=== PATIENT | female | born 1970 | race American Indian/Alaskan Native ===

== ENCOUNTER 2017-09-08 13:49 | Emergency (ER) | payer BC ==
[2017-09-08] MEDS ORDERED: ZOFRAN ODT PO ONE (17:11)
[2017-09-08] MEDS ORDERED: NORCO 10/325 PO ONE (17:11)
--- NOTE | 2017-09-08 17:41 | Emergency Department Report ---
ED Back Pain/Injury HPI - General Chief Complaint: Back Pain/Injury Stated Complaint: back pain Time Seen by Provider: 09/08/17 16:35 Source: patient Limitations: No Limitations - History of Present Illness Initial Comments: 47-year-old female past medical history fibromyalgia, obesity presents with complaint of one week of back pain with mild dysuria and increased urinary frequency and urgency. Patient denies fevers chills nausea and vomiting. States that her back feels achy. Denies any trauma denies any falls. Patient states that this may be her fibromyalgia pain. Patient is awake alert and oriented 3 not in acute distress. Patient is ambulatory without assistance. Denies any saddle paresthesias denies any loss of bladder or bowel control. States she is following up with her primary doctor this week MD Complaint: back pain Onset/Timin -: week(s) Similar Symptoms Previously: Yes Place: home Severity: mild Consistency: constant Improves With: none Worsens With: none Associated Symptoms: denies other symptoms - Related Data Home Medications Medication Instructions Recorded Confirmed Last Taken Omeprazole [PriLOSEC] 1 tab PO QDAY 08/29/13 06/27/14 06/26/14 traMADol [Ultram 50 MG tab] 1 tab PO Q6H PRN 08/29/13 06/27/14 06/26/14 Previous Rx's Medication Instructions Recorded Last Taken Type Ferrous Sulfate [Iron Supplement] 325 mg PO TID #90 tablet 08/30/13 06/26/14 Rx Lisinopril/Hydrochlorothiazide 1 tab PO QDAY #30 tablet 08/30/13 06/26/14 Rx [Zestoretic 20-25 mg] amLODIPine [Norvasc] 10 mg PO DAILY #30 tab 08/30/13 06/26/14 Rx Famotidine [Pepcid] 20 mg PO BID #10 tablet 06/27/14 Unknown Rx Omeprazole [PriLOSEC] 20 mg PO BID #60 cap 06/27/14 Unknown Rx Ondansetron [Zofran Odt] 4 mg PO Q6H #10 tab.rapdis 06/27/14 Unknown Rx oxyCODONE /ACETAMINOPHEN [Percocet 1 tab PO Q6HR PRN #10 tablet 06/27/14 Unknown Rx 5/325] traMADol [Ultram 50 MG tab] 50 mg PO Q6HR PRN #20 tablet 10/12/14 Unknown Rx Acetaminophen/Codeine [Tylenol #3] 1 tab PO Q6H PRN #15 tab 06/11/15 Unknown Rx methOCARBAMOL [Robaxin TAB] 500 mg PO BID #20 tab 06/11/15 Unknown Rx Dicyclomine [Bentyl] 10 mg PO QID #20 capsule 08/21/15 Unknown Rx Metoclopramide HCl [Reglan TAB] 5 mg PO Q6HR PRN #10 tablet 08/21/15 Unknown Rx Polyethylene Glycol 3350 [Miralax 17 gm PO ONCE #1 packet 08/21/15 Unknown Rx 3350] Acetaminophen/Codeine [Tylenol 1 tab PO Q6H PRN #12 tab 09/08/17 Unknown Rx /Codeine # 3 tab] Ibuprofen [Motrin] 800 mg PO Q8HR PRN #30 tablet 09/08/17 Unknown Rx Sulfamethoxazole/Trimethoprim 1 each PO BID #14 tablet 09/08/17 Unknown Rx [Bactrim DS TAB] Allergies Allergy/AdvReac Type Severity Reaction Status Date / Time No Known Allergies Allergy Verified 09/08/17 13:58 ED Review of Systems ROS: Stated complaint: back pain Other details as noted in HPI Constitutional: denies: chills, fever Eyes: denies: eye pain, eye discharge, vision change ENT: denies: ear pain, throat pain Respiratory: denies: cough, shortness of breath, wheezing Cardiovascular: denies: chest pain, palpitations Endocrine: no symptoms reported Gastrointestinal: denies: abdominal pain, nausea, diarrhea Genitourinary: denies: urgency, dysuria, discharge Musculoskeletal: back pain. denies: joint swelling, arthralgia Skin: denies: rash, lesions Neurological: denies: headache, weakness, paresthesias Psychiatric: denies: anxiety, depression Hematological/Lymphatic: denies: easy bleeding, easy bruising ED Past Medical Hx - Past Medical History Hx Hypertension: Yes Hx Arthritis: Yes Hx Kidney Stones: Yes Additional medical history: gastric ulcers - Surgical History Additional Surgical History: CS - Social History Smoking Status: Never Smoker Substance Use Type: None - Medications Home Medications: Home Medications Medication Instructions Recorded Confirmed Last Taken Type Omeprazole [PriLOSEC] 1 tab PO QDAY 08/29/13 06/27/14 06/26/14 History traMADol [Ultram 50 MG tab] 1 tab PO Q6H PRN 08/29/13 06/27/14 06/26/14 History Ferrous Sulfate [Iron Supplement] 325 mg PO TID #90 tablet 08/30/13 06/27/14 Rx Lisinopril/Hydrochlorothiazide 1 tab PO QDAY #30 tablet 08/30/13 06/27/14 Rx [Zestoretic 20-25 mg] amLODIPine [Norvasc] 10 mg PO DAILY #30 tab 08/30/13 06/27/14 06/26/14 Rx Famotidine [Pepcid] 20 mg PO BID #10 tablet 06/27/14 Unknown Rx Omeprazole [PriLOSEC] 20 mg PO BID #60 cap 06/27/14 Unknown Rx Ondansetron [Zofran Odt] 4 mg PO Q6H #10 tab.rapdis 06/27/14 Unknown Rx oxyCODONE /ACETAMINOPHEN [Percocet 1 tab PO Q6HR PRN #10 tablet 06/27/14 Unknown Rx 5/325] traMADol [Ultram 50 MG tab] 50 mg PO Q6HR PRN #20 tablet 10/12/14 Unknown Rx Acetaminophen/Codeine [Tylenol #3] 1 tab PO Q6H PRN #15 tab 06/11/15 Unknown Rx methOCARBAMOL [Robaxin TAB] 500 mg PO BID #20 tab 06/11/15 Unknown Rx Dicyclomine [Bentyl] 10 mg PO QID #20 capsule 08/21/15 Unknown Rx Metoclopramide HCl [Reglan TAB] 5 mg PO Q6HR PRN #10 tablet 08/21/15 Unknown Rx Polyethylene Glycol 3350 [Miralax 17 gm PO ONCE #1 packet 08/21/15 Unknown Rx 3350] Acetaminophen/Codeine [Tylenol 1 tab PO Q6H PRN #12 tab 09/08/17 Unknown Rx /Codeine # 3 tab] Ibuprofen [Motrin] 800 mg PO Q8HR PRN #30 tablet 09/08/17 Unknown Rx Sulfamethoxazole/Trimethoprim 1 each PO BID #14 tablet 09/08/17 Unknown Rx [Bactrim DS TAB] ED Physical Exam - General Limitations: No Limitations General appearance: alert, in no apparent distress - Head Head exam: Present: atraumatic, normocephalic - Eye Eye exam: Present: normal appearance, PERRL, EOMI - ENT ENT exam: Present: mucous membranes moist - Neck Neck exam: Present: normal inspection - Respiratory Respiratory exam: Present: normal lung sounds bilaterally. Absent: respiratory distress - Cardiovascular Cardiovascular Exam: Present: regular rate, normal rhythm. Absent: systolic murmur, diastolic murmur, rubs, gallop - GI/Abdominal GI/Abdominal exam: Present: soft (abdomen soft nontender nondistended four quadrants), normal bowel sounds - Extremities Exam Extremities exam: Present: normal inspection - Back Exam Back exam: Present: normal inspection - Neurological Exam Neurological exam: Present: alert, oriented X3, CN II-XII intact, normal gait - Psychiatric Psychiatric exam: Present: normal affect, normal mood - Skin Skin exam: Present: warm, dry, intact, normal color. Absent: rash ED Course Vital Signs 09/08/17 13:58 Temperature 98.0 F Pulse Rate 64 Respiratory 18 Rate Blood Pressure 179/80 O2 Sat by Pulse 98 Oximetry ED Medical Decision Making - Lab Data Result diagrams: 09/08/17 17:34 09/08/17 17:34 - Medical Decision Making A/P: Back pain, possible fibromyalgia pain versus UTI 1-Motrin when necessary, short course Tylenol 3 when necessary 2-will cover patient empirically with course of Bactrim 3-as patient is voiding urine without difficulty and has normal labs will refrain from imaging at this time. Patient denies any trauma or falls. cbc, renal function and creatinine kinase within normal limits Critical care attestation.: If time is entered above; I have spent that time in minutes in the direct care of this critically ill patient, excluding procedure time. ED Disposition Clinical Impression: Back pain Qualifiers: Back pain location: low back pain Chronicity: unspecified Back pain laterality : unspecified Sciatica presence: without sciatica Qualified Code(s): M54.5 - Low back pain Urinary tract infection Qualifiers: Urinary tract infection type: acute cystitis Hematuria presence: without hematuria Qualified Code(s): N30.00 - Acute cystitis without hematuria Disposition: TO HOME OR SELFCARE Is pt being admited?: No Does the pt Need Aspirin: No Condition: Stable Instructions: Urinary Tract Infection in Women (ED), Dysuria (ED) Prescriptions: Acetaminophen/Codeine [Tylenol /Codeine # 3 tab] 1 tab PO Q6H PRN #12 tab PRN Reason: Pain Ibuprofen [Motrin] 800 mg PO Q8HR PRN #30 tablet PRN Reason: Pain Sulfamethoxazole/Trimethoprim [Bactrim DS TAB] 1 each PO BID #14 tablet Referrals: [facility] [Outside] - 3-5 Days [facility] [Outside] - 3-5 Days Time of Disposition: 19:12
[2017-09-08 17:44] LABS: Bilirubin,Urine NEG (Negative); Blood,Urine NEG (Negative); Color,Urine Yellow (Yellow); Mucus,Urine FEW /HPF; Nitrite,Urine NEG (Negative); Protein,Urine <15 mg/dL mg/dL (Negative)
[2017-09-08 18:03] LABS: HCG Qualitative,Urine Negative (Negative)
[2017-09-08 18:04] LABS: Basophils # (Auto) 0.1 K/mm3 (0.0-0.1); Eosinophils # (Auto) 0.1 K/mm3 (0.0-0.4); Hematocrit 35.6 % (30.3-42.9); Hemoglobin 10.7 gm/dl (10.1-14.3); Lymphocytes # (Auto) 2.6 K/mm3 (1.2-5.4); Lymphocytes % (Auto) 39.3 % (13.4-35.0); Mean Corpuscular HGB Conc 30 % (30-34); Monocytes # (Auto) 0.3 K/mm3 (0.0-0.8); Monocytes % (Auto) 4.4 % (0.0-7.3); Platelet Count 309 K/mm3 (140-440); Red Blood Count 5.13 M/mm3 (3.65-5.03); Red Cell Distribution Width 18.4 % (13.2-15.2)
[2017-09-08 18:05] LABS: Mean Corpuscular Hemoglobin 21 pg (28-32); Mean Corpuscular Volume 70 fl (79-97)
[2017-09-08 18:12] LABS: BUN/Creatinine Ratio 17; Blood Urea Nitrogen 10 mg/dL (7-17); Calcium 9.1 mg/dL (8.4-10.2); Hemolysis Index 3
[2017-09-08 19:23] VITALS: BP 153/86
== END 2017-09-08 19:23 | disposition home or self-care (01) ==
LOC: ED 13:49
DX: N30.00 Acute cystitis without hematuria (principal); M54.5 Low back pain; I10 Essential (primary) hypertension; M19.90 Unspecified osteoarthritis, unspecified site
CPT/HCPCS: 36415; 80048; 81001; 81025; 82550; 85025; 87086; 99283; Q0162

== ENCOUNTER 2017-12-26 16:52 | Emergency (ER) | payer BC ==
[2017-12-26 17:01] VITALS: BP 158/93
--- NOTE | 2017-12-26 18:38 | XRay Report ---
FINAL REPORT EXAM: XR CHEST ROUTINE 2V HISTORY: Cough, SOB x 1 month. TECHNIQUE: PA and lateral views of the chest PRIORS: None. FINDINGS: Lines, tubes, and devices: N/A Lungs and pleura: Trachea is normal in position. Lungs are clear of infiltrate, pleural effusion, vascular congestion, or pneumothorax. Cardiomediastinal silhouette: Cardiac and mediastinal silhouettes are unremarkable. Other: Bony structures are intact. IMPRESSION: No acute cardiopulmonary process seen.
--- NOTE | 2017-12-26 20:31 | Emergency Department Report ---
- General Chief Complaint: Upper Respiratory Infection Stated Complaint: CHEST PAIN Time Seen by Provider: 12/26/17 20:20 Source: patient Mode of arrival: Ambulatory Limitations: No Limitations - History of Present Illness Initial Comments: This is a 47-year-old female nontoxic, well nourished in appearance, no acute signs of distress presents to the ED with c/o of productive cough, sore throat, rhinorrhea, nasal congestion x1 month. Patient describes productive cough as yellow mucus production. Patient denies any sick contact. Patient denies any recent travels, long car, recent hospital stays. Patient denies any calf pain or calf tenderness. Patient denies any chest pain, short of breath, fever, chills, nausea, vomiting, hemoptysis, numbness, tingling, headache or stiff neck. Patient denies any drug allergies. Past medical history includes arthritis and hypertension. MD Complaint: cough, sore throat, rhinorrhea, nasal congestion -: month(s) (1) Severity: mild Severity scale (0 -10): 0 Consistency: constant Improves With: nothing Worsens With: nothing Associated Symptoms: rhinorrhea, nasal congestion, sore throat, cough. denies: fever, chills, myalgias, diaphoresis, headache, stiff neck, chest pain, shortness of breath, abdominal pain, nausea, vomiting, diarrhea, dysuria, rash, confusion, right sweats, weight loss, epistaxis, hoarseness, ear pain Treatments Prior to Arrival: none - Related Data Home Medications Medication Instructions Recorded Confirmed Last Taken Carvedilol [Coreg] 25 mg PO DAILY 12/26/17 12/26/17 12/26/17 Previous Rx's Medication Instructions Recorded Last Taken Type Lisinopril/Hydrochlorothiazide 1 tab PO QDAY #30 tablet 08/30/13 12/26/17 Rx [Zestoretic 20-25 mg] amLODIPine [Norvasc] 10 mg PO DAILY #30 tab 08/30/13 12/26/17 Rx Omeprazole [PriLOSEC] 20 mg PO BID #60 cap 06/27/14 12/26/17 Rx Azithromycin [Zithromax Z-JOHN] 250 mg PO DAILY #6 tablet 12/26/17 Unknown Rx Benzonatate [Tessalon Perle] 100 mg PO Q8H PRN #20 capsule 12/26/17 Unknown Rx Fluticasone [Flonase] 1 spray NS QDAY #1 bottle 12/26/17 Unknown Rx Loratadine [Claritin] 10 mg PO DAILY #30 tablet 12/26/17 Unknown Rx Prednisone [predniSONE 10 mg 10 mg PO .TAPER #1 tab.ds.pk 12/26/17 Unknown Rx (6-Day Pack, 21 Tabs)] Allergies Allergy/AdvReac Type Severity Reaction Status Date / Time No Known Allergies Allergy Verified 09/08/17 13:58 ED Review of Systems ROS: Stated complaint: CHEST PAIN Other details as noted in HPI Constitutional: denies: chills, fever Eyes: denies: eye pain, eye discharge, vision change ENT: throat pain. denies: ear pain Respiratory: cough. denies: shortness of breath, wheezing Cardiovascular: denies: chest pain, palpitations Endocrine: no symptoms reported Gastrointestinal: denies: abdominal pain, nausea, diarrhea Genitourinary: denies: urgency, dysuria, discharge Musculoskeletal: denies: back pain, joint swelling, arthralgia Skin: denies: rash, lesions Neurological: denies: headache, weakness, paresthesias Psychiatric: denies: anxiety, depression Hematological/Lymphatic: denies: easy bleeding, easy bruising ED Past Medical Hx - Past Medical History Hx Hypertension: Yes Hx Arthritis: Yes Hx Kidney Stones: Yes Additional medical history: gastric ulcers - Surgical History Past Surgical History?: Yes Additional Surgical History: CS - Social History Smoking Status: Never Smoker - Medications Home Medications: Home Medications Medication Instructions Recorded Confirmed Last Taken Type Lisinopril/Hydrochlorothiazide 1 tab PO QDAY #30 tablet 08/30/13 06/27/14 Rx [Zestoretic 20-25 mg] amLODIPine [Norvasc] 10 mg PO DAILY #30 tab 08/30/13 06/27/14 12/26/17 Rx Omeprazole [PriLOSEC] 20 mg PO BID #60 cap 06/27/14 12/26/17 Rx Azithromycin [Zithromax Z-JOHN] 250 mg PO DAILY #6 tablet 12/26/17 Unknown Rx Benzonatate [Tessalon Perle] 100 mg PO Q8H PRN #20 capsule 12/26/17 Unknown Rx Carvedilol [Coreg] 25 mg PO DAILY 12/26/17 12/26/17 12/26/17 History Fluticasone [Flonase] 1 spray NS QDAY #1 bottle 12/26/17 Unknown Rx Loratadine [Claritin] 10 mg PO DAILY #30 tablet 12/26/17 Unknown Rx Prednisone [predniSONE 10 mg 10 mg PO .TAPER #1 tab.ds.pk 12/26/17 Unknown Rx (6-Day Pack, 21 Tabs)] ED Physical Exam - General Limitations: No Limitations General appearance: alert, in no apparent distress - Head Head exam: Present: atraumatic, normocephalic - Eye Eye exam: Present: normal appearance Pupils: Present: normal accommodation - ENT ENT exam: Present: mucous membranes moist, TM's normal bilaterally, normal external ear exam - Expanded ENT Exam Expanded Ear exam: Present: normal external inspection Mouth exam: Present: normal external inspection, tongue normal. Absent: drooling, trismus, muffled voice, tongue elevation, laceration Teeth exam: Present: normal inspection Throat exam: Positive: tonsillar erythema, tonsillomegaly (2+), other (Uvula midline. No abscess or swelling noted. ). Negative: tonsillar exudate, R peritonsillar mass, L peritonsillar mass - Neck Neck exam: Present: normal inspection, full ROM, lymphadenopathy (bilateral tonsillar). Absent: tenderness, meningismus - Respiratory Respiratory exam: Present: normal lung sounds bilaterally. Absent: respiratory distress, wheezes, rales, rhonchi, stridor, chest wall tenderness, accessory muscle use, decreased breath sounds, prolonged expiratory - Cardiovascular Cardiovascular Exam: Present: regular rate, normal rhythm, normal heart sounds. Absent: bradycardia, tachycardia, irregular rhythm, systolic murmur, diastolic murmur, rubs, gallop - GI/Abdominal GI/Abdominal exam: Present: soft, normal bowel sounds. Absent: distended, tenderness, guarding, rebound, rigid, diminished bowel sounds - Extremities Exam Extremities exam: Present: normal inspection, full ROM, normal capillary refill - Back Exam Back exam: Present: normal inspection, full ROM - Neurological Exam Neurological exam: Present: alert, oriented X3, normal gait - Psychiatric Psychiatric exam: Present: normal affect, normal mood - Skin Skin exam: Present: warm, dry, intact, normal color. Absent: rash ED Course Vital Signs 12/26/17 16:57 Temperature 98.6 F Pulse Rate 74 Respiratory 22 Rate Blood Pressure 158/93 O2 Sat by Pulse 97 Oximetry - Reevaluation(s) Reevaluation #1: 12/26/17 20:32 Patient is speaking in full sentences with no signs of distress noted. ED Medical Decision Making - Medical Decision Making This is a 47-year-old female that presents with bronchitis and tonsillitis. Patient is stable and was examined by me. Chest x-ray has been obtained and dictated by radiologist with normal exam. Patient is notified of x-ray results with no questions noted. Due to patient having symptoms of bronchitis and worsening I will treat patient empirically with zpak. Patient was instructed to increase hydration, rest and take Motrin for fever episodes. Vitals stable. Patient is nonfebrile and normal heart rate. Patient was instructed Follow-up with a primary care doctor in 3-5 days or if symptoms worsen and continue return to emergency room as soon as possible. At time time of discharge, the patient does not seem toxic or ill in appearance. No acute signs of distress noted. Patient agrees to discharge treatment plan of care. No further questions noted by the patient. Critical care attestation.: If time is entered above; I have spent that time in minutes in the direct care of this critically ill patient, excluding procedure time. ED Disposition Clinical Impression: Bronchitis, Tonsillitis Disposition: DC-01 TO HOME OR SELFCARE Is pt being admited?: No Does the pt Need Aspirin: No Condition: Stable Instructions: Acute Bronchitis (ED), Tonsillitis (ED), Azithromycin (By mouth) , Prednisone (By mouth) Additional Instructions: Follow-up with a primary care doctor in 3-5 days or if symptoms worsen and continue return to emergency room as soon as possible. Prescriptions: Azithromycin [Zithromax Z-JHON] 250 mg PO DAILY #6 tablet Benzonatate [Tessalon Perle] 100 mg PO Q8H PRN #20 capsule PRN Reason: cough Fluticasone [Flonase] 1 spray NS QDAY #1 bottle Loratadine [Claritin] 10 mg PO DAILY #30 tablet Prednisone [predniSONE 10 mg (6-Day Pack, 21 Tabs)] 10 mg PO .TAPER #1 tab.ds.pk Referrals: PRIMARY CARE, [Primary Care Provider] - 3-5 Days PATRICK CARRILLO MD [Staff Physician] - 3-5 Days [facility] [Outside] - 3-5 Days [facility] [Outside] - 3-5 Days Forms: Work/School Release Form(ED)
== END 2017-12-26 20:37 | disposition home or self-care (01) ==
LOC: ED 16:52
DX: J40 Bronchitis, not specified as acute or chronic (principal); J03.90 Acute tonsillitis, unspecified; I10 Essential (primary) hypertension; M19.90 Unspecified osteoarthritis, unspecified site
CPT/HCPCS: 71046; 99283

== ENCOUNTER 2017-12-29 01:27 | Observation (INO) | payer BC ==
[2017-12-29] MEDS ORDERED: ASPIRIN PO ONE (01:45)
[2017-12-29 02:16] LABS: Basophils % (Auto) 0.6 % (0.0-1.8); Eosinophils # (Auto) 0.1 K/mm3 (0.0-0.4); Eosinophils % (Auto) 0.8 % (0.0-4.3); Hematocrit 34.1 % (30.3-42.9); Hemoglobin 10.7 gm/dl (10.1-14.3); Lymphocytes # (Auto) 2.3 K/mm3 (1.2-5.4); Lymphocytes % (Auto) 29.6 % (13.4-35.0); Mean Corpuscular HGB Conc 31 % (30-34); Monocytes # (Auto) 0.4 K/mm3 (0.0-0.8); Monocytes % (Auto) 5.2 % (0.0-7.3); Platelet Count 350 K/mm3 (140-440); Red Blood Count 4.95 M/mm3 (3.65-5.03); Red Cell Distribution Width 18.9 % (13.2-15.2)
[2017-12-29 02:26] LABS: Mean Corpuscular Hemoglobin 22 pg (28-32); Mean Corpuscular Volume 69 fl (79-97)
[2017-12-29 02:39] LABS: BUN/Creatinine Ratio 17; Blood Urea Nitrogen 12 mg/dL (7-17); Calcium 9.4 mg/dL (8.4-10.2); Hemolysis Index 4
[2017-12-29] MEDS ORDERED: ZOFRAN IV ONE (08:18)
[2017-12-29] MEDS ORDERED: NITRO-BID 2% TP ONE (08:18)
[2017-12-29] MEDS ORDERED: MORPHINE IV ONE (08:19)
--- NOTE | 2017-12-29 08:30 | Emergency Department Report ---
HPI - General Chief Complaint: Chest Pain Time Seen by Provider: 12/29/17 08:10 - HPI HPI: Room 24 The patient is a 47-year-old female presenting with a chief complaint of chest pain. The patient states for approximately 2 months she's had intermittent cough that was originally productive of green sputum. The patient states she was seen here 3 days ago and diagnosed with bronchitis. Patient states at approximately midnight she developed substernal chest pressure radiating to her left arm. The patient states she has a squeezing pressure pain in her chest and left arm that has been intermittent and associated with shortness of breath and diaphoresis. Patient denies nausea/vomiting. Patient admits to orthopnea. The patient states her last stress test occurred approximately one year ago. Patient states she's never had a cardiac catheterization Location: Chest, left arm Duration: [See above] Quality: Squeezing/pressure Severity: 03/14 Modifying factors: [see above] Context: [see above] Mode of transportation: [not driving] ED Past Medical Hx - Past Medical History Hx Hypertension: Yes Hx Arthritis: Yes Hx Kidney Stones: Yes Additional medical history: gastric ulcers - Surgical History Past Surgical History?: Yes Additional Surgical History: CS - Family History Family history: no significant - Social History Smoking Status: Never Smoker Substance Use Type: None (denies illicit drug use) - Medications Home Medications: Home Medications Medication Instructions Recorded Confirmed Last Taken Type Lisinopril/Hydrochlorothiazide 1 tab PO QDAY #30 tablet 08/30/13 06/27/14 Rx [Zestoretic 20-25 mg] amLODIPine [Norvasc] 10 mg PO DAILY #30 tab 08/30/13 06/27/14 12/26/17 Rx Omeprazole [PriLOSEC] 20 mg PO BID #60 cap 06/27/14 12/26/17 Rx Azithromycin [Zithromax Z-JOHN] 250 mg PO DAILY #6 tablet 12/26/17 Unknown Rx Benzonatate [Tessalon Perle] 100 mg PO Q8H PRN #20 capsule 12/26/17 Unknown Rx Carvedilol [Coreg] 25 mg PO DAILY 12/26/17 12/26/17 12/26/17 History Fluticasone [Flonase] 1 spray NS QDAY #1 bottle 12/26/17 Unknown Rx Loratadine [Claritin] 10 mg PO DAILY #30 tablet 12/26/17 Unknown Rx Prednisone [predniSONE 10 mg 10 mg PO .TAPER #1 tab.ds.pk 12/26/17 Unknown Rx (6-Day Pack, 21 Tabs)] ED Review of Systems ROS: Stated complaint: CHEST PAIN,LEFT ARM PAIN Other details as noted in HPI Constitutional: diaphoresis. denies: fever Eyes: denies: eye pain ENT: denies: throat pain Respiratory: cough, orthopnea, shortness of breath Cardiovascular: chest pain Gastrointestinal: denies: abdominal pain, nausea, vomiting Genitourinary: denies: dysuria Musculoskeletal: back pain Neurological: denies: headache Physical Exam - Physical Exam Vital Signs: Vital Signs 12/29/17 12/29/17 12/29/17 01:30 01:40 05:30 Temperature 98.3 F 98.3 F 98.1 F Pulse Rate 67 78 70 Respiratory 18 20 18 Rate Blood Pressure 175/85 175/85 Blood Pressure 175/85 175/91 [Right] O2 Sat by Pulse 95 99 99 Oximetry 12/29/17 06:01 Temperature Pulse Rate 70 Respiratory Rate Blood Pressure Blood Pressure [Right] O2 Sat by Pulse Oximetry Physical Exam: GENERAL: The patient is well-developed well-nourished female lying on stretcher not appearing to be in acute distress. [] HEENT: Normocephalic. Atraumatic. Extraocular motions are intact. Patient has moist mucous membranes. NECK: Supple. Trachea midline CHEST/LUNGS: Clear to auscultation. There is no respiratory distress noted. HEART/CARDIOVASCULAR: Regular. There is no tachycardia. There is no gallop rub or murmur. ABDOMEN: Abdomen is soft, nontender. Patient has normal bowel sounds. There is no abdominal distention. SKIN: There is no rash. There is no edema. There is no diaphoresis. NEURO: The patient is awake, alert, and oriented. The patient is cooperative. The patient has normal speech MUSCULOSKELETAL: There is no evidence of acute injury. ED Course Vital Signs 12/29/17 12/29/17 12/29/17 01:30 01:40 05:30 Temperature 98.3 F 98.3 F 98.1 F Pulse Rate 67 78 70 Respiratory 18 20 18 Rate Blood Pressure 175/85 175/85 Blood Pressure 175/85 175/91 [Right] O2 Sat by Pulse 95 99 99 Oximetry 12/29/17 06:01 Temperature Pulse Rate 70 Respiratory Rate Blood Pressure Blood Pressure [Right] O2 Sat by Pulse Oximetry ED Medical Decision Making - Lab Data Result diagrams: 12/29/17 01:53 12/29/17 01:53 Laboratory Tests 12/29/17 12/29/17 12/29/17 01:53 01:53 05:05 WBC 7.7 RBC 4.95 Hgb 10.7 Hct 34.1 MCV 69 L MCH 22 L MCHC 31 RDW 18.9 H Plt Count 350 Lymph % (Auto) 29.6 [place] % (Auto) 5.2 Eos % (Auto) 0.8 Baso % (Auto) 0.6 Lymph # 2.3 [place] # 0.4 Eos # 0.1 Baso # 0.0 Seg Neutrophils % 63.8 Seg Neutrophils # 4.9 Sodium 138 Potassium 3.3 L Chloride 94.5 L Carbon Dioxide 30 Anion Gap 17 BUN 12 Creatinine 0.7 Estimated GFR > 60 BUN/Creatinine Ratio 17 Glucose 239 H Calcium 9.4 Troponin T < 0.010 < 0.010 - EKG Data -: EKG Interpreted by Me EKG shows normal: sinus rhythm Rate: normal - EKG Data When compared to previous EKG there are: previous EKG unavailable Interpretation: other (no ischemic changes seen) - Radiology Data Radiology results: image reviewed (chest x-ray) interpreted by me: Chest x-ray-no focal infiltrates, no pneumothorax - Differential Diagnosis ACS, pericarditis, bronchitis, costochondritis Critical care attestation.: If time is entered above; I have spent that time in minutes in the direct care of this critically ill patient, excluding procedure time. ED Disposition Clinical Impression: Chest pain Disposition: -09 OP ADMIT IP TO THIS HOSP Is pt being admited?: Yes Does the pt Need Aspirin: Yes Condition: Fair Instructions: Chest Pain (ED) Referrals: PRIMARY CARE,MD [Primary Care Provider] - 3-5 Days Time of Disposition: 08:46 (hospitalist notified (Dr Garcia))
--- NOTE | 2017-12-29 09:21 | XRay Report ---
FINAL REPORT EXAM: XR CHEST 1V AP HISTORY: chest pain TECHNIQUE: Chest, AP PRIORS: None. FINDINGS: The heart size is normal. Mediastinal contours are normal. Pulmonary vasculature is not congested. The lungs are clear. There are no pleural effusion seen. There is no evidence of pneumothorax. IMPRESSION: There is no acute abnormality identified.
[2017-12-29] MEDS ORDERED: TYLENOL PO PRN (09:28)
[2017-12-29] MEDS ORDERED: ZOFRAN IV PRN (09:28)
[2017-12-29] MEDS ORDERED: SODIUM CHLORIDE FLUSH SYRINGE 10 ML IV PRN (09:28)
[2017-12-29] MEDS ORDERED: MORPHINE IV PRN (09:28)
[2017-12-29] MEDS ORDERED: D50W (25GM) Syringe IV PRN (09:30)
[2017-12-29] MEDS: COLACE PO SCH ×2 (10:00→22:13)
--- NOTE | 2017-12-29 10:08 | History and Physical Report ---
History of Present Illness Date of admission: 12/29/17 09:28 Chief complaint: 47-year-old -Swedish female with past medical history significant for hypertension, arthritis,pre diabetes, fibromyalgia presented to the emergency department complaining of mid sternal chest pain that started last night. Pain was squeezing in quality, 9/10 in intensity, with radiation to bilateral arms and back, associated with shortness of breath and diaphoresis, no aggravating or alleviating factors identified. Patient denied nausea, vomiting, palpitation , leg swelling. Patient was diagnosed recently with bronchitis and she was given antibiotics and steroids. Patient said she was admitted to [facility] for chest pain and a stress test was done and was negative. REVIEW OF SYSTEMS: GENERAL: no weight change, no fatigue, no fever HEAD: no head ache EYES: no blurry vision, no acute visual loss EARS: no hearing loss, no discharge, no earache NOSE: no stuffiness, no sneezing, no discharge MOUTH, THROAT AND NECK: no bleeding gums, no sore throat, no swollen neck CARDIAC: As stated in the HPI. RESPIRATORY: As stated in the HPI. GI: no decreased appetite, no nausea, no vomiting, no dysphagia, no diarrhea, no constipation, no abdominal pain URINARY: no change in frequency, no urgency, no polyuria, no hematuria, no incontinence MUSCULOSKELETAL: no muscle weakness, no pain, no joint stiffness NEUROLOGIC: no loss of sensation/numbness, no tingling, no tremors, no weakness/ paralysis HEMATOLOGIC: no anemia, no easy bruising SKIN: no rashes ENDOCRINE: no heat/cold intolerance, no polyuria, no polydipsia, no thyroid problems PSYCHIATRIC: no anxiety, no depression, no suicidal ideations Past History Past Medical History: arthritis, diabetes, hypertension Past Surgical History: No surgical history Social history: full code. denies: smoking, alcohol abuse, prescription drug abuse, IV drug use Family history: CAD (Father) Medications and Allergies Allergies Allergy/AdvReac Type Severity Reaction Status Date / Time No Known Allergies Allergy Verified 09/08/17 13:58 Home Medications Medication Instructions Recorded Confirmed Last Taken Type Lisinopril/Hydrochlorothiazide 1 tab PO QDAY #30 tablet 08/30/13 06/27/14 Rx [Zestoretic 20-25 mg] amLODIPine [Norvasc] 10 mg PO DAILY #30 tab 08/30/13 06/27/14 12/26/17 Rx Omeprazole [PriLOSEC] 20 mg PO BID #60 cap 06/27/14 12/26/17 Rx Azithromycin [Zithromax Z-JOHN] 250 mg PO DAILY #6 tablet 12/26/17 Unknown Rx Benzonatate [Tessalon Perle] 100 mg PO Q8H PRN #20 capsule 12/26/17 Unknown Rx Carvedilol [Coreg] 25 mg PO DAILY 12/26/17 12/26/17 12/26/17 History Fluticasone [Flonase] 1 spray NS QDAY #1 bottle 12/26/17 Unknown Rx Loratadine [Claritin] 10 mg PO DAILY #30 tablet 12/26/17 Unknown Rx Prednisone [predniSONE 10 mg 10 mg PO .TAPER #1 tab.ds.pk 12/26/17 Unknown Rx (6-Day Pack, 21 Tabs)] Active Meds: Active Medications Acetaminophen (Tylenol) 650 mg PO Q4H PRN PRN Reason: Pain MILD(1-3)/Fever >100.5/VALLEJO Dextrose (D50w (25gm) Syringe) 50 ml IV PRN PRN PRN Reason: Hypoglycemia Docusate Sodium (Colace) 100 mg PO BID ESTHER Famotidine (Pepcid) 10 mg PO BID ESTHER Heparin Sodium (Porcine) (Heparin) 5,000 unit SUB-Q Q8HR ESTHER Insulin Human Lispro (Humalog) 0 unit SUB-Q ACHS ESTHER; Protocol Morphine Sulfate (Morphine) 2 mg IV Q4H PRN PRN Reason: Pain, Moderate (4-6) Ondansetron HCl (Zofran) 4 mg IV Q8H PRN PRN Reason: Nausea And Vomiting Sodium Chloride (Sodium Chloride Flush Syringe 10 Ml) 10 ml IV BID ESTHER Sodium Chloride (Sodium Chloride Flush Syringe 10 Ml) 10 ml IV PRN PRN PRN Reason: LINE FLUSH Exam - Physical Exam Narrative exam: Not in cardiopulmonary distress. The patient is obese. Vital signs as documented. Head exam is unremarkable. No scleral icterus . Neck is without jugular venous distension, thyromegaly, or carotid bruits. Lungs are clear to auscultation. Cardiac exam reveals regular rate and Rhythm. Abdominal exam reveals normal bowel sounds. Extremities are nonedematous and both femoral and pedal pulses are normal. HOME COORDINATOR: Alert and oriented 3. No focal weakness. - Constitutional Vitals: Temp Pulse Resp BP Pulse Ox 98.1 F 70 18 175/91 99 12/29/17 05:30 12/29/17 06:01 12/29/17 05:30 12/29/17 05:30 12/29/17 05:30 Results - Labs CBC & Chem 7: 12/29/17 01:53 12/29/17 01:53 Labs: Laboratory Last Values WBC 7.7 K/mm3 (4.5-11.0) 12/29/17 01:53 RBC 4.95 M/mm3 (3.65-5.03) 12/29/17 01:53 Hgb 10.7 gm/dl (10.1-14.3) 12/29/17 01:53 Hct 34.1 % (30.3-42.9) 12/29/17 01:53 MCV 69 fl (79-97) L 12/29/17 01:53 MCH 22 pg (28-32) L 12/29/17 01:53 MCHC 31 % (30-34) 12/29/17 01:53 RDW 18.9 % (13.2-15.2) H 12/29/17 01:53 Plt Count 350 K/mm3 (140-440) 12/29/17 01:53 Lymph % (Auto) 29.6 % (13.4-35.0) 12/29/17 01:53 Gallia % (Auto) 5.2 % (0.0-7.3) 12/29/17 01:53 Eos % (Auto) 0.8 % (0.0-4.3) 12/29/17 01:53 Baso % (Auto) 0.6 % (0.0-1.8) 12/29/17 01:53 Lymph # 2.3 K/mm3 (1.2-5.4) 12/29/17 01:53 Gallia # 0.4 K/mm3 (0.0-0.8) 12/29/17 01:53 Eos # 0.1 K/mm3 (0.0-0.4) 12/29/17 01:53 Baso # 0.0 K/mm3 (0.0-0.1) 12/29/17 01:53 Seg Neutrophils % 63.8 % (40.0-70.0) 12/29/17 01:53 Seg Neutrophils # 4.9 K/mm3 (1.8-7.7) 12/29/17 01:53 Sodium 138 mmol/L (137-145) 12/29/17 01:53 Potassium 3.3 mmol/L (3.6-5.0) L 12/29/17 01:53 Chloride 94.5 mmol/L (98-107) L 12/29/17 01:53 Carbon Dioxide 30 mmol/L (22-30) 12/29/17 01:53 Anion Gap 17 mmol/L 12/29/17 01:53 BUN 12 mg/dL (7-17) 12/29/17 01:53 Creatinine 0.7 mg/dL (0.7-1.2) 12/29/17 01:53 Estimated GFR > 60 ml/min 12/29/17 01:53 BUN/Creatinine Ratio 17 % 12/29/17 01:53 Glucose 239 mg/dL (65-100) H 12/29/17 01:53 Calcium 9.4 mg/dL (8.4-10.2) 12/29/17 01:53 Troponin T < 0.010 ng/mL (0.00-0.029) 12/29/17 07:47 NT-Pro-B Natriuret Pep 57.44 pg/mL (0-450) 12/29/17 07:47 Assessment and Plan Assessment and plan: 47-year-old -Swedish female with past medical history significant for hypertension, prediabetes, arthritis, fibromyalgia presented to the emergency department with complaints of chest pain. Chest pain - Cardiac enzymes were negative, EKG normal sinus rhythm, stress test ordered. - Pain control, cardiology consulted Hypertension - Continue antihypertensive medications Diabetes - Sliding scale insulin, will check hemoglobin A1c, ADA diet, accucheck Bronchitis - Continue azithromycin, cough syrup DVT prophylaxis - Heparin Disposition - Admit to telemetry floor. Advance Directives: Yes VTE prophylaxis?: Chemical Plan of care discussed with patient/family: Yes
[2017-12-29] MEDS: PEPCID PO SCH ×2 (10:15→22:13)
[2017-12-29 10:23] LABS: Chol/HDL Ratio 3.53 %
--- NOTE | 2017-12-29 11:07 | Consultation ---
History of Present Illness Consult date: 12/29/17 Consult reason: chest pain History of present illness: Patient having chest pain of 2 days duration,involving anterior chest,both arms, tightness like feeling,intermittent at rest,worse with coughing.No previous cardiac history,no hx. of OH,chf or arrhythmia.No previous cardiac w/u. Having cough with mucoid phlegm of 2 months,came to ER few days ago ,was treated for bronchitis and sent home. Past History Past Medical History: anemia (hx of anemia and blood transfusion few years ago.hx. of stomach ulcer few years ago.), hypertension (of 5 years.), other ( says prediabetic.). denies: atrial fib, CAD Social history: denies: smoking, alcohol abuse, prescription drug abuse (father of heart failure in his 60's,was diabetic.), IV drug use Medications and Allergies Allergies Allergy/AdvReac Type Severity Reaction Status Date / Time No Known Allergies Allergy Verified 09/08/17 13:58 Home Medications Medication Instructions Recorded Confirmed Last Taken Type Lisinopril/Hydrochlorothiazide 1 tab PO QDAY #30 tablet 08/30/13 06/27/14 Rx [Zestoretic 20-25 mg] amLODIPine [Norvasc] 10 mg PO DAILY #30 tab 08/30/13 06/27/14 12/26/17 Rx Omeprazole [PriLOSEC] 20 mg PO BID #60 cap 06/27/14 12/26/17 Rx Azithromycin [Zithromax Z-JOHN] 250 mg PO DAILY #6 tablet 12/26/17 Unknown Rx Benzonatate [Tessalon Perle] 100 mg PO Q8H PRN #20 capsule 12/26/17 Unknown Rx Carvedilol [Coreg] 25 mg PO DAILY 12/26/17 12/26/17 12/26/17 History Fluticasone [Flonase] 1 spray NS QDAY #1 bottle 12/26/17 Unknown Rx Loratadine [Claritin] 10 mg PO DAILY #30 tablet 12/26/17 Unknown Rx Prednisone [predniSONE 10 mg 10 mg PO .TAPER #1 tab.ds.pk 12/26/17 Unknown Rx (6-Day Pack, 21 Tabs)] Active Meds: Active Medications Acetaminophen (Tylenol) 650 mg PO Q4H PRN PRN Reason: Pain MILD(1-3)/Fever >100.5/VALLEJO Dextrose (D50w (25gm) Syringe) 50 ml IV PRN PRN PRN Reason: Hypoglycemia Docusate Sodium (Colace) 100 mg PO BID ESTHER Famotidine (Pepcid) 10 mg PO BID ESTHER Heparin Sodium (Porcine) (Heparin) 5,000 unit SUB-Q Q8HR ESTHER Insulin Human Lispro (Humalog) 0 unit SUB-Q ACHS ESTHER; Protocol Morphine Sulfate (Morphine) 2 mg IV Q4H PRN PRN Reason: Pain, Moderate (4-6) Ondansetron HCl (Zofran) 4 mg IV Q8H PRN PRN Reason: Nausea And Vomiting Sodium Chloride (Sodium Chloride Flush Syringe 10 Ml) 10 ml IV BID ESTHER Sodium Chloride (Sodium Chloride Flush Syringe 10 Ml) 10 ml IV PRN PRN PRN Reason: LINE FLUSH Review of Systems Constitutional: no weight loss, no chills Ears, nose, mouth and throat: no ear discharge Breasts: deferred Cardiovascular: chest pain Respiratory: cough with sputum Gastrointestinal: no abdominal pain Integumentary: no rash Neurological: no seizures, no syncope Endocrine: no cold intolerance Hematologic/Lymphatic: no easy bruising Allergic/Immunologic: no urticaria Physical Examination Vital Signs Temp Pulse Resp BP Pulse Ox 98.3 F 67 18 175/85 95 12/29/17 01:30 12/29/17 01:30 12/29/17 01:30 12/29/17 01:30 12/29/17 01:30 General appearance: no acute distress HEENT: Positive: PERRL Neck: Positive: neck supple, trachea midline Cardiac: Positive: Reg Rate and Rhythm. Negative: Systolic Murmur Lungs: Positive: clear to auscultation Neuro: Positive: Grossly Intact Abdomen: Positive: Unremarkable Female genitourinary: deferred Skin: Negative: Rash Extremities: Absent: edema Results 12/29/17 01:53 12/29/17 01:53 Lipids 12/29/17 Range/Units 09:42 Triglycerides 97 (2-149) mg/dL Cholesterol 173 (50-199) mg/dL HDL Cholesterol 49 (40-59) mg/dL Cholesterol/HDL Ratio 3.53 % CBC 12/29/17 Range/Units 01:53 WBC 7.7 (4.5-11.0) K/mm3 RBC 4.95 (3.65-5.03) M/mm3 Hgb 10.7 (10.1-14.3) gm/dl Hct 34.1 (30.3-42.9) % Plt Count 350 (140-440) K/mm3 Lymph # 2.3 (1.2-5.4) K/mm3 Prentiss # 0.4 (0.0-0.8) K/mm3 Eos # 0.1 (0.0-0.4) K/mm3 Baso # 0.0 (0.0-0.1) K/mm3 Comprehensive Metabolic Panel 12/29/17 Range/Units 01:53 Sodium 138 (137-145) mmol/L Potassium 3.3 L (3.6-5.0) mmol/L Chloride 94.5 L (98-107) mmol/L Carbon Dioxide 30 (22-30) mmol/L BUN 12 (7-17) mg/dL Creatinine 0.7 (0.7-1.2) mg/dL Glucose 239 H (65-100) mg/dL Calcium 9.4 (8.4-10.2) mg/dL - EKG Interpretation EKG: sinus rhythm (LVH,ivcd.) Assessment and Plan Chest pain of 2 days duration,dx. of bronchitis few days ago,chronic of 2 months duratin,hypertensive,prediabetic,inactive. Chest pains appear atypical,with risk factors,would get functional evaluation with pharmacologic MPI. Discussed with patient,she is aggreable with plan. - Patient Problems (1) Gastritis Current Visit: No Status: Acute
[2017-12-29] MEDS: HumaLOG SUB-Q SCH (17:00)
[2017-12-29] MEDS: HEPARIN SUB-Q SCH ×2 (17:30→22:12)
[2017-12-29] MEDS ORDERED: TESSALON PERLES PO PRN (19:14)
[2017-12-29] MEDS ORDERED: K-DUR PO ONE (19:24)
[2017-12-29] MEDS ORDERED: NON-FORMULARY (Omeprazole [Prilosec] 20 MG) PO SCH (22:00)
[2017-12-29] MEDS: SODIUM CHLORIDE FLUSH SYRINGE 10 ML IV SCH (22:14)
[2017-12-29] MEDS: PROTONIX PO SCH (22:14)
[2017-12-29] MEDS: ZITHROMAX PO SCH (22:17)
[2017-12-30] MEDS: HumaLOG SUB-Q SCH ×4 (00:21→17:03)
[2017-12-30] MEDS: HEPARIN SUB-Q SCH ×2 (06:36→14:04)
[2017-12-30] MEDS ORDERED: LEXISCAN IV ONE ×2 (08:12→08:21)
[2017-12-30 08:50] LABS: BUN/Creatinine Ratio 17; Blood Urea Nitrogen 10 mg/dL (7-17); Calcium 8.7 mg/dL (8.4-10.2); Hemolysis Index 3
[2017-12-30] MEDS ORDERED: NORVASC PO SCH (10:00)
[2017-12-30] MEDS ORDERED: ZESTRIL PO SCH (10:00)
[2017-12-30] MEDS ORDERED: NON-FORMULARY (Lisinopril/Hydrochlorothiazide [Zestoretic 20-25 Mg] 1 TAB) PO SCH (10:00)
[2017-12-30] MEDS ORDERED: HCTZ PO SCH (10:00)
[2017-12-30] MEDS ORDERED: FLONASE NS SCH (10:00)
[2017-12-30] MEDS ORDERED: CLARITIN PO SCH (10:00)
[2017-12-30] MEDS ORDERED: COREG PO SCH (10:00)
[2017-12-30 12:04] VITALS: BP 162/79
[2017-12-30] MEDS: COLACE PO SCH (12:16)
[2017-12-30] MEDS: PEPCID PO SCH (12:19)
[2017-12-30] MEDS: PROTONIX PO SCH (12:19)
[2017-12-30] MEDS: ZITHROMAX PO SCH (12:21)
[2017-12-30] MEDS: SODIUM CHLORIDE FLUSH SYRINGE 10 ML IV SCH (12:22)
--- NOTE | 2017-12-30 14:44 | Discharge Summary ---
Providers - Providers Date of Admission: 12/29/17 09:28 Date of discharge: 12/30/17 Attending physician: ROYA BROOKS MD 12/29/17 09:25 Consult to Physician [CONS] Routine Comment: Dr. Dupree saw patient @ 10:00- LXM Consulting Provider: ANTWON GROVES Physician Instructions: Reason For Exam: chest pain Primary care physician: [facility] Hospitalization Reason for admission: chest pain, new onset diabetes Condition: Stable Pertinent studies: Stress test negative for acute ischemia Hospital course: 47-year-old -[place] female with past medical history significant for hypertension, arthritis,pre diabetes, fibromyalgia presented to the emergency department complaining of mid sternal chest pain that started last night. Pain was squeezing in quality, 9/10 in intensity, with radiation to bilateral arms and back, associated with shortness of breath and diaphoresis, no aggravating or alleviating factors identified. Patient denied nausea, vomiting, palpitation , leg swelling. Patient was diagnosed recently with bronchitis and she was given antibiotics and steroids. Patient said she was admitted to [facility] for chest pain and a stress test was done and was negative. Patient was admitted to the floor and her bronchitis medications were continued, stress test was done and negative for acute ischemia. Patient's hemoglobin A1c was 8.5 and patient was discharged with metformin in a stable condition. Patient's questions and concerns were addressed at the bedside. Appropriate Scripts were given at the time of discharge. Disposition: TO HOME OR SELFCARE - Discharge Diagnoses (1) Diabetes mellitus Status: Acute Qualifiers: Diabetes mellitus type: type 2 Diabetes mellitus mcfp insulin use: without network contractor use Diabetes mellitus complication status: without complication Qualified Code(s): E11.9 - Type 2 diabetes mellitus without complications (2) Chest pain Status: Acute (3) Bronchitis Status: Acute Core Measure Documentation - Palliative Care Palliative Care/ Comfort Measures: Not Applicable - Core Measures Any of the following diagnoses?: none Exam - Physical Exam Narrative exam: Not in cardiopulmonary distress. The patient is obese. Vital signs as documented. Head exam is unremarkable. No scleral icterus . Neck is without jugular venous distension, thyromegaly, or carotid bruits. Lungs are clear to auscultation. Cardiac exam reveals regular rate and Rhythm. Abdominal exam reveals normal bowel sounds. Extremities are nonedematous and both femoral and pedal pulses are normal. CLINICAL COURIER: Alert and oriented 3. No focal weakness. - Constitutional Vitals: Temp Pulse Resp BP Pulse Ox 98.0 F 79 18 162/79 92 12/30/17 06:44 12/30/17 09:47 12/30/17 06:44 12/30/17 09:47 12/30/17 06:44 Plan Activity: no restrictions Weight Bearing Status: Full Weight Bearing Diet: diabetic Additional Instructions: follow up at [facility] in 1-2 weeks Follow up with: PRIMARY CAREMD [Primary Care Provider] - 3-5 Days Prescriptions: metFORMIN [Glucophage] 500 mg PO BID #60 tablet
--- NOTE | 2017-12-30 15:09 | Progress Note ---
Assessment and Plan Chest pain of 2 days duration,dx. of bronchitis few days ago,chronic of 2 months duratin,hypertensive,prediabetic,inactive. Chest pains appear atypical,with risk factors,would get functional evaluation with pharmacologic MPI. Discussed with patient,she is aggreable with plan. 12/30/2017>patient's iv Lexiscan MPI did not show significant ischemia,normal EF. Would continue risk factor modification.Agree with d/c plans. - Patient Problems (1) Gastritis Current Visit: No Status: Acute Subjective Date of service: 12/30/17 Interval history: chest pain improved,had iv lexiscan MPI performed. Objective Vital Signs Temp Pulse Resp Resp BP BP Pulse Ox 12/30/17 09:47 79 162/79 12/30/17 09:46 71 173/90 12/30/17 09:45 76 173/90 12/30/17 09:44 73 167/84 12/30/17 09:43 74 167/84 12/30/17 09:41 97 H 165/82 12/30/17 08:58 61 165/82 12/30/17 06:44 98.0 F 63 18 145/76 92 12/30/17 05:52 88 12/30/17 01:18 88 22 170/91 95 12/30/17 01:11 18 12/29/17 20:34 98.2 F 60 20 140/81 91 12/29/17 19:40 55 L 14 127/70 94 12/29/17 19:30 59 L 17 127/70 74 L 12/29/17 19:20 97.7 F 67 21 128/66 112/64 95 12/29/17 19:10 61 19 112/64 97 12/29/17 19:00 58 L 16 112/64 96 12/29/17 18:50 59 L 22 124/67 100 12/29/17 18:40 54 L 16 133/70 99 12/29/17 18:30 52 L 16 132/73 97 12/29/17 18:22 17 133/70 12/29/17 17:01 133/70 12/29/17 16:50 16 120/67 99 12/29/17 16:40 61 21 117/64 99 12/29/17 16:30 57 L 24 117/64 97 12/29/17 16:20 59 L 29 H 123/76 100 05/27/18 16:10 53 L 22 122/77 99 12/29/17 16:00 54 L 20 122/77 98 12/29/17 15:50 50 L 16 107/68 98 12/29/17 15:40 53 L 14 118/70 98 12/29/17 15:30 56 L 22 118/70 97 12/29/17 15:20 59 L 13 111/66 97 12/29/17 15:10 55 L 15 129/73 99 - Physical Examination HEENT: Positive: PERRL Neck: Positive: neck supple, trachea midline Cardiac: Positive: Regular Rhythm Lungs: Positive: Normal Breath Sounds Neuro: Positive: Grossly Intact Abdomen: Positive: Unremarkable, Active Bowel Sounds Skin: Negative: Rash Extremities: Absent: edema - Labs and Meds Comprehensive Metabolic Panel 12/30/17 Range/Units 07:42 Sodium 139 (137-145) mmol/L Potassium 3.5 L (3.6-5.0) mmol/L Chloride 97.5 L (98-107) mmol/L Carbon Dioxide 31 H (22-30) mmol/L BUN 10 (7-17) mg/dL Creatinine 0.6 L (0.7-1.2) mg/dL Glucose 151 H (65-100) mg/dL Calcium 8.7 (8.4-10.2) mg/dL - Imaging and Cardiology Pharmacologic stress test: report reviewed (EF 56%,small ,mild fixed apical defect.No significant ischemia.) - EKG Sinus rhythms and dysrhythmias: sinus rhythm
--- NOTE | 2018-01-02 14:47 | Query- Chest Pain ---
Angelina Jamil Date:___01/02/2018 [employer] Utility Worker/CDS:___Obdulia Phone#:___[phone] Exercise your independent professional judgment when responding to query. Questions asked do not imply a particular answer is desired or expected. We greatly appreciate your clarification on this issue. Clinical Documentation States: 47 Year old female was admitted on 12/29/2017 for mid sternal chest pain that started last night. Pain was squeezing in quality, 9/10 in intensity, with radiation to bilateral arms and back, associated with shortness of breath and diaphoresis, no aggravating or alleviating factors identified. The Discharge summary states "(2) Chest pain Status: Acute." Please document the etiology of Chest Pain: [ ] Myocardial Infarction [ ] Pneumonia [ ] Mediastinitis [ x] Costochondritis [ ] Pulmonary Embolism [ ] Coronary Artery Disease [ ] GERD [ ] Other: [ ] Comment/Explanation: Present on Admission: [ x] Yes (Y) [ ] Clinically undeterminable (W) [ ] No(N) Please document response in your Progress Notes and/or Discharge Summary and indicate if the condition was present on admission. BENNETT
--- NOTE | 2018-01-03 08:33 | Treadmill Report ---
IV LEXISCAN MYOCARDIAL PERFUSION IMAGING STUDY This being performed on 47-year-old female with complaints of chest pain. Baseline EKG showed sinus rhythm with LVH by voltage criteria noted. The patient received IV Lexiscan and tolerated it well. No significant EKG changes from baseline post-vasodilation. The patient had myocardial perfusion images performed at rest and also post-vasodilation. Gated studies were performed, post-vasodilation. The following findings were noted. Perfusion images showed small mild apical defect, which is more or less unchanged between the rest and post-stress images. Left ventricular size is normal with normal contractility and function. Calculated ejection fraction of 56% noted post-vasodilation. Transient ischemic dilation ratio was found to be 1.07. FINAL IMPRESSION: 1. No evidence of ischemia or scar with fixed small apical defect. 2. Normal left ventricular systolic function with calculated ejection fraction of 56% noted. 3. This is a low risk myocardial perfusion imaging study. JOB# [id number] TUAN/RADHA
== END 2017-12-30 17:00 | disposition home or self-care (01) ==
LOC: ED 01:27 → 4A 09:28 → INTOOBSV 09:28 → 4A 18:14
PROVIDERS: ADMIT Internal Medicine; ATTEND Internal Medicine
DX: R07.89 Other chest pain (principal); K21.9 Gastro-esophageal reflux disease without esophagitis; J40 Bronchitis, not specified as acute or chronic; I10 Essential (primary) hypertension; E11.9 Type 2 diabetes mellitus without complications; M19.90 Unspecified osteoarthritis, unspecified site; Z87.442 Personal history of urinary calculi; M79.7 Fibromyalgia; Z82.49 Family history of ischemic heart disease and other diseases of the circulatory system
CPT/HCPCS: 36415; 71045; 78452; 80048; 80061; 82962; 83036; 83880; 84484; 85025; 93005; 93010; 93017; 94760; 96372; 96374; 96375; 99285; A9502; G0378; J1644; J2270; J2405; J2785; J1815

== ENCOUNTER 2019-05-27 10:11 | Emergency (ER) | payer BC ==
--- NOTE | 2019-05-27 11:11 | XRay Report ---
CHEST 2 VIEWS INDICATION: cough. COMPARISON: 12/29/2017 FINDINGS: Support devices: None. Heart: Within normal limits. Lungs/pleura: No acute air space or interstitial disease. No pneumothorax. Additional findings: None. IMPRESSION: No acute findings. Signer Name: Tevin Zimmer Jr, MD Signed: 05/27/2019 11:07 AM Workstation Name: [id number]
[2019-05-27] MEDS ORDERED: dexAMETHasone 4 MG/ML VIAL IM ONE (11:26)
[2019-05-27] MEDS ORDERED: ALBUTEROL 2.5 MG/3 ML NEBU IH ONE (11:26)
[2019-05-27] MEDS ORDERED: LIDOCAINE-MPF (1%) 10 MG/1 ML VIAL 5 ML INFILTRATI ONE (11:26)
--- NOTE | 2019-05-27 11:28 | Emergency Department Report ---
Minor Respiratory - HPI Chief Complaint: Upper Respiratory Infection Stated Complaint: COUGH/PAIN ALL OVER/HEADACHE Time Seen by Provider: 05/27/19 11:21 Duration: 5 Days Pain Location: Chest Severity: mild Minor Respiratory: Yes Able to Tolerate Fluids, Yes Cough, No Rhinorrhea, No Sore Throat, No Ear Pain, No Sick Contacts, No Hemoptysis, No Chest Pain, No Shortness of Breath, No Fever Other History: 49 yo female comes to ER co cough and congestion for about 5 days. She reports a/c bronchitis. No fever. Pos chills. Did not see pcp. Taking otc meds without relief. No cp or sob. ED Review of Systems ROS: Stated complaint: COUGH/PAIN ALL OVER/HEADACHE Other details as noted in HPI Comment: All other systems reviewed and negative ED Past Medical Hx - Past Medical History Previous Medical History?: Yes Hx Hypertension: Yes Hx Diabetes: Yes Hx Arthritis: Yes Hx Kidney Stones: Yes Additional medical history: gastric ulcers - Surgical History Past Surgical History?: Yes Additional Surgical History: CS - Family History Family history: no significant - Social History Smoking Status: Never Smoker Substance Use Type: None - Medications Home Medications: Home Medications Medication Instructions Recorded Confirmed Last Taken Type Lisinopril/Hydrochlorothiazide 1 tab PO QDAY #30 tablet 08/30/13 06/27/14 12/26/17 Rx [Zestoretic 20-25 mg] amLODIPine [Norvasc] 10 mg PO DAILY #30 tab 08/30/13 06/27/14 12/26/17 Rx Omeprazole [PriLOSEC] 20 mg PO BID #60 cap 06/27/14 12/26/17 Rx Carvedilol [Coreg] 25 mg PO DAILY 12/26/17 12/26/17 12/26/17 History metFORMIN [Glucophage] 500 mg PO BID #60 tablet 12/30/17 Unknown Rx Azithromycin [Zithromax Z-JOHN] 250 mg PO DAILY #6 tablet 05/27/19 Unknown Rx Benzonatate [Tessalon Perles] 100 mg PO BID PRN #20 capsule 05/27/19 Unknown Rx Cetirizine HCl [ZyrTEC] 10 mg PO DAILY #30 capsule 05/27/19 Unknown Rx Fluticasone [Flonase] 1 spray NS QDAY #1 bottle 05/27/19 Unknown Rx predniSONE [Deltasone] 20 mg PO DAILY #5 tablet 05/27/19 Unknown Rx Minor Respiratory Exam - Exam General: Vital signs noted. No distress. Alert and acting appropriately. HEENT: Yes Moist Mucous Membranes, No Pharyngeal Erythema, No Pharyngeal Exudates, No Rhinorrhea, No Conjuctival Injection, No Frontal Tenderness, No Maxillary Tenderness Ear: Neither TM Bulge, Neither TM Erythema, Neither EAC Pain, Neither EAC Discharge Neck: Yes Supple, No Adenopathy Lungs: Yes Good Air Exchange, Yes Wheezes, Yes Cough, No Ronchi, No Labored Respirations Heart: Yes Regular, No Murmur Abdomen: Yes Normal Bowel Sounds, No Tenderness, No Peritoneal Signs Skin: No Rash Neurologic: Alert and oriented, no deficits. Musculoskeletal: Unremarkable. ED Course Vital Signs 05/27/19 10:12 Temperature 98.5 F Pulse Rate 96 H Respiratory 20 Rate Blood Pressure 179/96 O2 Sat by Pulse 97 Oximetry ED Medical Decision Making - Radiology Data Radiology results: report reviewed, image reviewed - Medical Decision Making pt has a/c bronchitis no fever; endorses chills cough no sputum ambulatory non ill and nontoxic on exam taking po xray neg for consolidation medicated in ER dc home with dc plan of care and pcp follow up. pt verbalizes understanding. Vital Signs 05/27/19 10:12 Temperature 98.5 F Pulse Rate 96 H Respiratory 20 Rate Blood Pressure 179/96 O2 Sat by Pulse 97 Oximetry - Differential Diagnosis ro pna/urti Critical care attestation.: If time is entered above; I have spent that time in minutes in the direct care of this critically ill patient, excluding procedure time. ED Disposition Clinical Impression: Diabetes mellitus, Acute bronchiolitis, URTI (acute upper respiratory infection) Disposition: DC-01 TO HOME OR SELFCARE Is pt being admited?: No Does the pt Need Aspirin: No Condition: Stable Instructions: Diabetes Mellitus Type 2 in Adults (ED), Acute Bronchitis (ED) Additional Instructions: hydrate well with water meds as ordered today diabetic diet follow your blood sugar because it may be high for a couple days due to meds follow up with pcp Saturday to be sure you are getting better continue home meds. Prescriptions: predniSONE [Deltasone] 20 mg PO DAILY #5 tablet Fluticasone [Flonase] 1 spray NS QDAY #1 bottle Benzonatate [Tessalon Perles] 100 mg PO BID PRN #20 capsule PRN Reason: Cough Azithromycin [Zithromax Z-JOHN] 250 mg PO DAILY #6 tablet Cetirizine HCl [ZyrTEC] 10 mg PO DAILY #30 capsule Referrals: PRIMARY CARE, [Primary Care Provider] - 3-5 Days [facility] [Outside] - 3-5 Days Time of Disposition: 11:27
[2019-05-27 12:20] VITALS: BP 150/84
== END 2019-05-27 12:21 | disposition home or self-care (01) ==
LOC: ED 10:11
DX: J21.9 Acute bronchiolitis, unspecified (principal); J06.9 Acute upper respiratory infection, unspecified; I10 Essential (primary) hypertension; E11.9 Type 2 diabetes mellitus without complications; Z87.442 Personal history of urinary calculi; Z79.899 Other long term (current) drug therapy; Z79.84 Long term (current) use of oral hypoglycemic drugs
CPT/HCPCS: 71046; 94640; 96372; 99282; J0696; J1100